=== PATIENT | male | born 1990 | race African-American/Black ===

== ENCOUNTER 2017-01-16 16:56 | Emergency (ER) | payer OTHER ==
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
[2017-01-16 17:36] VITALS: BP 127/76
--- NOTE | 2017-01-16 17:59 | RAD ---
INDICATION: Left elbow injury. TECHNIQUE: 4 views of the left elbow were obtained. FINDINGS: The bones are in normal alignment. No joint effusion or fracture is seen. Joint spaces appear maintained. IMPRESSION: NO EVIDENCE FOR FRACTURE.
== END 2017-01-16 18:09 | disposition home or self-care (01) ==
LOC: UCCORT 16:56
DX: S50.12XA Contusion of left forearm, initial encounter (principal); X58.XXXA Exposure to other specified factors, initial encounter; Y93.89 Activity, other specified; Y92.9 Unspecified place or not applicable
CPT/HCPCS: 99201; G0463